=== PATIENT | male | born 2000 | race Caucasian/White ===

== ENCOUNTER 2024-03-13 13:44 | Emergency (ER) | payer OTHER, SELFPAY ==
[2024-03-13 13:58] VITALS: BP 134/83
[2024-03-13 14:24] LABS: % Basophils 1.1 % (0-2); % Eosinophils 1.6 % (0-6); % Immature Granulocytes 0.5 % (0-0.5); % Monocytes 9.8 % (1.7-9.3); Absolute Eosinophils 0.1 10^3/uL (0-0.7); Absolute Lymphocytes 1.3 10^3/uL (1.2-3.4); Absolute Monocytes 0.4 10^3/uL (0.1-0.6); Hematocrit 43.3 % (39.0-52.0); Hemoglobin 15.1 g/dL (13.0-18.0); Mean Corp Hgb Conc. 34.9 g/dL (33.0-37.0); Mean Corpuscular Volume 80.3 fL (80.0-94.0); Nucleated Red Blood Cells % 0 % (-); Platelet Count 287 10^3/uL (130-400); Red Blood Cell Count 5.39 10^6/uL (4.70-6.10); Red Cell Dist. Width 11.9 % (11.5-14.5); White Blood Cell Count 3.8 10^3/uL (4.8-10.8)
[2024-03-13 14:30] LABS: INR 1.12; PT 14.2 Sec (11.4-14.6)
[2024-03-13 14:33] LABS: ALT (SGPT) 21 U/L (0-50); AST (SGOT) 23 U/L (17-59); Alkaline Phosphatase 35 U/L (38-126); Blood Urea Nitrogen 20 mg/dl (9-20); Calcium 9.9 mg/dl (8.4-10.2); Carbon Dioxide 30 mmol/L (22-30); Chloride 101 mmol/L (98-107); Glucose 85 mg/dl (70-99); Potassium 5.2 mmol/L (3.5-5.1); Sodium 142 mmol/L (135-145); Total Bilirubin 0.7 mg/dl (0.2-1.3); Total Protein 7.5 g/dl (6.3-8.2); eGFR > 60.00
[2024-03-13 14:44] LABS: Troponin I < 0.012 ng/ml
[2024-03-13 14:47] VITALS: BP 123/103
[2024-03-13 14:50] VITALS: BP 136/71; BMI 23.6
--- NOTE | 2024-03-13 15:00 | ED.GENMED ---
History of Present Illness
General
Chief Complaint: Abdominal Pain
Source: patient
Exam Limitations: none
Time Seen by Provider: 03/13/24 14:38
Nursing documentation reviewed up to this point in time: agreed with
History of Present Illness
History of Present Illness:
Patient to ED with complaint of upper abdominal pain, chest pain, SOB. Symptoms started a few weeks ago. States he quit vaping without improvement in chest symptoms. Denies fever/cough. States sometimes when he takes a deep breath he hears
crackling noises. Upper abdominal pain is intermittent. Reports occasional nausea but no vomiting or diarrea. States he is passing less stool than normal and that stool looks sharp and color is orange. Stool is harder than normal. Today he noted
blood in toilet. He called his PCP to schedule an appointment and was advised to come to ED. NO fever/chills. Brought self to ED for eval
Past History
Past History
ED Past Medical History: None
ED Past Surgical History: None
Social History
Tobacco: Vaping (quit x 2 weeks)
Alcohol: Occasional
Drug: Marijuana (medical marijuana. Stopped smoking 2 weks ago.)
Personal: Single
Living: with family
Employment: Employed
Family History
Family History: Other (Long QT); Negative Early CAD
Review of Systems
Review of Systems
Allergies reviewed?: Yes
All Other Systems: ROS reviewed and negative except as documented in HPI and ROS
Neurological: Reports no symptoms
Psychiatric: Reports no symptoms
Phy Exam
General Physical Exam
General Presentation: well appearing and no apparent distress
General age: appears stated age
General Skin: warm and dry
General Habitus: normal
General Mental: alert
General Hydration: appears well hydrated
Cardiovascular Exam
Cardiovascular Exam: regular rate/rhythm and no edema
Pulmonary Exam
Pulmonary Exam: lungs clear and no respiratory distress
Gastrointestinal Exam
Gastrointestinal Exam: normal bowel sounds, non tender, soft, no organomegaly and non distended
Rectal Exam: normal external exam, normal sphincter tone and hard stool
Stool: brown
Guaiac Status: negative
Musculoskeletal Exam
Musculoskeletal Exam: full ROM and neuro vasc intact
Skin Exam
Skin Exam: normal color, warm/dry and no rash
Psychiatric Exam
Psychiatric Exam: normal mood/affect
Course
Orders/Labs/Results
Orders:
Orders
03/13/24 13:45
EKG [Electrocardiogram (*1)] Urgent
Reason for Study: Chest Pain
EKG- Treatment ONCE
03/13/24 14:05
Complete Blood Count/With Diff Urgent
Comprehensive Metabolic Panel Urgent
Prothrombin Time Urgent
Troponin I Urgent
03/13/24 14:59
CR Chest - 2 Views Urgent
Comment:
Reason For Exam: Cp, SOB
US Abdomen Complete/Upper Urgent
Comment:
Reason For Exam: upper abd. pain
Abnormal Lab Results
03/13/24
14:05
WBC 3.8 L 10^3/uL
(4.8-10.8)
Monocytes % 9.8 H %
(1.7-9.3)
Potassium 5.2 H mmol/L
(3.5-5.1)
Alkaline Phosphatase 35 L U/L
(38-126)
03/13/24 14:05
03/13/24 14:05
Vital Signs
Initial and Last Documented VS:
Initial Vital Signs
Temp Pulse Resp BP Pulse Ox
97.4 F 69 20 134/83 99
03/13/24 13:58 03/13/24 13:58 03/13/24 13:58 03/13/24 13:58 03/13/24 13:58
Last Documented Vital Signs
Temp Pulse Resp BP Pulse Ox
98.5 F 82 16 92/47 97
03/13/24 14:50 03/13/24 14:50 03/13/24 14:50 03/13/24 17:03 03/13/24 15:35
*Radiology
Radiology exam reviewed: radiology read reviewed
*Pulse Oximetry
Patient hypoxic: no
*Critical Care Note
Total Time (30-74mins, 75-104mins- exclusive of procedures): Not Applicable
Update Note
Update Note:
Patient to ED wti hcomplaint of abominal and chest pain, blood in stool Pain has been ongoing for the past few months, Labs imaging reviewed. No concerning findings on exam today. will discharge home, close follow up with PCP. given
instructions on s/s to return to eD and he is agreeable to plan.
ED Attending Note
-
Portions of this chart may have been created with voice recognition software.� Occasional wrong word or��sound alike� substitutions may have occurred due to the inherent limitations of voice recognition software.
Discharge Plan
Departure
Patient Disposition: Home (Routine Discharge)
Date of Disposition: 03/13/24
Time of Disposition: 16:37
Patient with high blood pressure during this ER visit?: No
Condition: Good
Covid-19: Not Applicable
Discharge Problem:
Abdominal pain, Chest pain
Instructions: Constipation, Adult (DC), Acid Reflux and GERD in Adults (DC), Abdominal Pain
Prescriptions:
New
omeprazole 40 mg capsule,delayed release(DR/EC)
40 mg PO DAILY Qty: 20 0RF
polyethylene glycol 3350 [ClearLax] 17 gram powder in packet
17 g PO BID PRN (Reason: Constipation) Qty: 30 0RF
No Action
escitalopram oxalate 5 MG tablet
5 mg PO DAILY
albuterol sulfate [ProAir HFA] 90 mcg/actuation HFA aerosol inhaler
2 puff inhalation Q6H PRN (Reason: shortness of breath or wheezing) Qty: 8.5 0RF
Stand Alone Forms: Return to Work
Activity Restrictions/Additional Instructions:
Follow up with your family doctor.
Interventions
Interventions:
*Risk Screen - Suicide Last Done: 03/13/24 13:58
*General Assessment Last Done: 03/13/24 13:58
*Neglect/Abuse Screening Last Done: 03/13/24 13:58
ED- Fall Risk Assessment Last Done: 03/13/24 14:50
*ED COVID-19 Vaccine History Last Done: 03/13/24 14:50
*Nursing Disposition Last Done: 03/13/24 16:40
RX-Vofszv-Zhrywpoxpt Assessment Last Done: 03/13/24 14:50
Discharge Date and Time
Discharge Date/Time: 03/13/24 16:40
Print Language: GREENLANDIC
[2024-03-13 15:28] VITALS: BP 119/71
[2024-03-13 17:03] VITALS: BP 92/47
== END 2024-03-13 16:40 | disposition home or self-care (01) ==
LOC: EMR 13:44
PROVIDERS: Emergency Medicine; EMERGENCY PHYSICIAN Student in an Organized Health Care Education/Training Program; FAMILY PHYSICIAN Physician Assistant Surgical
DX: R10.10 Upper abdominal pain, unspecified (principal); R07.89 Other chest pain
CPT/HCPCS: 99284; 71046; 76700; 80053; 84484; 85025; 85610; 93005